=== PATIENT | female | born 2005 | race Caucasian/White ===

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

== ENCOUNTER 2025-02-10 08:22 | Inpatient (IN) | payer MEDICAID ==
[~2025-02-10] VITALS: Ht 167.6 cm; Wt 86.6 kg
--- NOTE | 2025-02-10 08:35 | ED.PDOC ---
GI ASSESSMENT HPI Comments 19 year old female presents to the ED with a chief complaint of abdominal pain onset last night. Patient states she began experiencing epigastric pain last night described as a sharp pain, as well as nausea, vomiting, diarrhea. Patient noticed pain worsen this morning, decided to come to ED. Denies any PMHx as well as chest pain, shortness of breath, headache, cough, congestion, fever, chills, dysuria, hematuria. No other symptoms or modifying factors present at this time. Time Seen by MD: 08:27 Primary Care Provider: DONN Gaston Notes: Medications, Allergies Allergies: Coded Allergies: NO KNOWN ALLERGIES (Unverified , 04/29/11) Home Meds Active Scripts Pantoprazole Sodium Sesquihydr (Protonix) 40 Mg Tab, 40 MG PO DAILY for 5 Days, #5 TAB Prov:ESTEFANI BELTRAN MD 02/10/25 Information Source: Patient Mode of Arrival: Ambulatory Timing: Days Duration: Since onset Prehospital treatment: None Quality: Sharp Severity: Moderate Recent: None Recent Hx of: None Pain Location: Epigastric Modifying Factors: Nothing Associated sign and symptoms: Nausea, Vomiting, Diarrhea, Abdominal Pain Past Medical History PAST MEDICAL HISTORY: Denies Surgical History: Denies all surgeries Family History Family History: Reviewed,noncontributory to illness, No family hx of HTN Social History Smoker: Other Alcohol: Occasionally Drugs: Marijuana Lives In: Home Constitutional: denies: chills, diaphoresis, fatigue, fever, malaise, sweats, weakness, others EENTM: denies: blurred vision, double vision, ear bleeding, ear discharge, ear drainage, ear pain, ear ringing, eye pain, eye redness, hearing loss, mouth pain, mouth swelling, nasal discharge, nose bleeding, nose congestion, nose pain, photophobia, tearing, throat pain, throat swelling, voice changes, others Respiratory: denies: cough, hemoptysis, orthopnea, SOB at rest, shortness of breath, SOB with excertion, stridor, wheezing, others Cardiovascular: denies: chest pain, dizzy spells, diaphoresis, Dyspnea on exertion, edema, irregular heart beat, left arm pain, lightheadedness, palpitations, PND, syncope, others Gastrointestinal: reports: abdominal pain, diarrhea, nausea, vomiting; denies: abdomen distended, blood streaked bowels, constipated, dysphagia, difficulty swallowing, hematemesis, melena, poor appetite, poor fluid intake, rectal bleeding, rectal pain, others Genitourinary: denies: abnormal vagina bleeding, burning, dyspareunia, dysuria, flank pain, frequency, hematuria, incontinence, pain, , vagina discharge, urgency, others Neurological: denies: dizziness, fainting, headache, left sided numbness, left sided weakness, numbness, paresthesia, pre-existing deficit, right sided numbness, right sided weakness, seizure, speech problems, tingling, tremors, weakness, others Musculoskeletal: denies: back pain, gout, joint pain, joint swelling, muscle p ain, muscle stiffness, neck pain, others Integumetry: denies: bruises, change in color, change in hair/nails, dryness, laceration, lesions, lumps, rash, wounds, others Allergic/Immunocompromised: denies: Difficulty Healing, Frequent Infections, Hives, Itching, others Hematologic/Lymphatic: denies: anemia, blood clots, easy bleeding, easy bruising, swollen glands, others Endocrine: denies: excessive hunger, excessive sweating, excessive thirst, excessive urination, flushing, intolerance to cold, intolerance to heat, unexplained weight gain, unexplained weight loss, others Psychiatric: denies: anxiety, bipolar disorder, depression, hopeless, panic disorder, schizophrenia, sleepless, suicidal, others All Other Systems: Reviewed and Negative Physical Exam General Appearance: Moderate Distress, Normal HEENT: Normal ENT Inspection, Pharynx Normal, TMs Normal Neck: Full Range of Motion, Non-Tender, Normal, Normal Inspection Respiratory: Chest Non-Tender, Lungs Clear, No Accessory Muscle Use, No Respiratory Distress, Normal Breath Sounds Cardiovascular: No Edema, No JVD, No Murmur, No Gallop, Normal Peripheral Pulses, Regular Rate/Rhythm Breast Exam: Deferred Gastrointestinal: No Organomegaly, Non Tender, No Pulsatile Mass, Normal Bowel Sounds, Soft Genitalia: Deferred Pelvic: Deferred Rectal: Deferred Extremities: No calf tenderness, Normal capillary refill, Normal inspection, Normal range of motion, Non-tender, No pedal edema Musculoskeletal : Apperance: Normal Neurologic: Alert, photographic spotter II-XII nml as Tested, No Motor Deficits, Normal Affect, Normal Mood, No Sensory Deficits Cerebellar Function: Normal Reflexes: Normal Skin: Dry, Normal Color, Warm Peripheral Pulses: 3+ Radial (R), 3+ Radial (L) Lymphatic: No Adenopathy Was a procedure done? Was a procedure done?: No GI differential Dx Differential Diagnosis: Constipation, Diverticular disease, Esophagitis, Gastritis/PUD, Gastroenteritis X-Ray, Labs, Meds, VS Vital Signs Date Time Temp Pulse Resp B/P (MAP) Pulse Ox O2 Delivery O2 Flow Rate FiO2 02/10/25 10:51 69 13 119/66 (83) 100 02/10/25 10:35 Room Air* 0 21 02/10/25 10:27 98.2 79 18 118/71 (87) 98 98.2 02/10/25 10:27 79 18 98 Room Air 02/10/25 08:42 97.9 101 18 128/82 (97) 98 97.9 Lab Test 02/10/25 11:29 02/10/25 09:00 02/10/25 08:49 Range/Units Lactic Acid Level 2.1 *H 0.4-2.0 mmol/L Urine Color Light-orange Yellow Urine Clarity Turbid H Clear Urine pH 8.0 5.0-9.0 Urine Specific [place] 1.029 1.001-1.035 Urine Protein 1+ H Negative Urine Ketones Negative Negative Urine Blood 2+ H Negative /uL Urine Nitrite Negative Negative Urine Bilirubin Negative Negative Urine Urobilinogen 2 H Negative mg/dL Urine Leukocyte Esterase 1+ Negative /uL Urine RBC 73 0 - 4 /hpf Urine Microscopic WBC 6 H 0-5 /HPF Urine Squamous Epithelial Cells Mod <5 /hpf Urine Bacteria Few H None Seen /hpf Urine Mucus Few None Seen Urine Yeast (Budding) Occasional None Seen /hpf Urine Glucose Normal Normal mg/dL Urine Test Negative Negative White Blood Count 16.4 H 4.4-10.8 10^3/uL Red Blood Count 4.80 4.0-5.20 10^6/uL Hemoglobin 15.0 12.2-16.2 g/dL Hematocrit 46.0 36.0-46.0 % Mean Corpuscular Volume 95.8 80.0-100.0 fL Mean Corpuscular Hemoglobin 31.1 28.0-32.0 pg Mean Corpuscular Hemoglobin Concent 32.5 32.0-36.0 g/dL Red Cell Distribution Width 13.6 11.8-14.3 % Platelet Count 254 140-450 10^3/uL Mean Platelet Volume 7.5 6.9-10.8 fL Neutrophils (%) (Auto) 90.1 H 37.0-80.0 % Lymphocytes (%) (Auto) 5.6 L 10.0-50.0 % Monocytes (%) (Auto) 4.1 0.0-12.0 % Eosinophils (%) (Auto) 0.0 0.0-7.0 % Basophils (%) (Auto) 0.2 0.0-2.0 % Neutrophils # (Auto) 14.8 H 1.6-8.6 10 ^3/uL Lymphocytes # (Auto) 0.9 0.4-5.4 10 ^3/uL Monocytes # (Auto) 0.7 0-1.3 10 ^3/uL Eosinophils # (Auto) 0 0-0.8 10 ^3/uL Basophils # (Auto) 0 0-0.2 10 ^3/uL Nucleated Red Blood Cells 0.2 % Prothrombin Time 10.3 9.3-11.8 sec Prothrombin Time INR 0.97 0.9-1.15 Activated Partial Thromboplast Time 25.5 24.5-34.5 SEC Sodium Level 140 136-145 mmol/L Potassium Level 4.2 3.5-5.1 mmol/L Chloride Level 104 98-107 mmol/L Carbon Dioxide Level 27 20-31 mmol/L Anion Gap 9 5-15 Blood Urea Nitrogen 9 9-23 mg/dL Creatinine 0.95 0.550-1.02 mg/dL Glomerular Filtration Rate Calc 87 >90 mL/min BUN/Creatinine Ratio 9.5 L 10.0-20.0 Serum Glucose 123 H 74-106 mg/dL Calcium Level 10.4 8.7-10.4 mg/dL Total Bilirubin 1.1 H 0.2-1.0 mg/dL Aspartate Amino Transferase (AST) 18 13-40 U/L Alanine Aminotransferase (ALT) 17 7-40 U/L Alkaline Phosphatase 71 46-116 U/L Total Protein 7.8 5.7-8.2 g/dL Albumin 5.1 H 3.2-4.8 g/dL Current Medications Medications (Trade) Dose Ordered Sig/Alfredo Route Start Time Stop Time Status Last Admin Ceftriaxone Sodium 50 ml @ 100 mls/hr ONCE ONCE IV 02/10/25 10:00 02/10/25 10:29 DC 02/10/25 10:26 Sodium Chloride 1,000 ml @ 1,000 mls/hr Q1H ONCE IV 02/10/25 10:00 02/10/25 10:59 DC 02/10/25 10:26 Patient alert. Complaining of abdominal discomfort. Abdomen is soft nontender. Vitals stable. No sign of distress. Ambulating without difficulty. Possible gastroenteritis. Reviewed her history. Was given prescription of Protonix. She is anxious. Continue monitoring. She continues to have abdominal discomfort. Urinalysis shows urinary tract infection. WBC elevated. Possible kidney stone. Establish intravenous access. Was given fluids. Was given Rocephin Explained to the patient. Spoke with surgery. He will be taking the patient. Time of 1ST Reevaluation: 08:57 Reevaluation 1ST: Unchanged Patient Education/Counseling: Diagnosis, Treatment, Prognosis Family Education/Counseling: No Family Present Additional Information The following tests were ordered, and results were reviewed by me: CBC, UA, PREGUA I discussed treatment and results with medical personnel and: Patient, mother Comprehensive systems review obtained and negative except for what is stated in the HPI. Departure 1 Departure Time of Disposition: 09:27 Impression: Primary Impression: Acute appendicitis Qualified Codes: K35.80 - Unspecified acute appendicitis Additional Impressions: Sepsis, unspecified organism Qualified Codes: A41.9 - Sepsis, unspecified organism Urinary tract infection Qualified Codes: N30.01 - Acute cystitis with hematuria Gastritis Qualified Codes: K29.00 - Acute gastritis without bleeding Disposition: 09 ADMITTED INPATIENT Admit to: Med Surg Condition: Guarded e-Prescriptions Pantoprazole Sodium Sesquihydr (Protonix) 40 Mg Tab 40 MG PO DAILY for 5 Days, #5 TAB Prov: ESTEFANI BELTRAN MD 02/10/25 Critical Care Note Critical Care Time?: Yes (90 min-critical care time only) Critical care comment: Started antibiotics Stability Stability form required: No Heart Score Heart Score: Heart Score Response (Comments) Value History N/A 0 EKG N/A 0 Age N/A 0 Risk Factors N/A 0 Troponin N/A 0 Total 0 I personally scribed for ESTEFANI BELTRAN MD ([email or web address]) on 02/10/25 at 08:35. Electronically submitted by Jemma Rowell ([email or web address]). I personally scribed for ESTEFANI BELTRAN MD ([email or web address]) on 02/10/25 at 08:41. Electronically submitted by Jemma Rowell ([email or web address]). ESTEFANI BELTRAN MD Feb 10, 2025 08:35
[2025-02-10 09:13] LABS: Basophils # (auto) 0 10 ^3/uL (0-0.2); Basophils % (auto) 0.2 % (0.0-2.0); Eosinophils # (auto) 0 10 ^3/uL (0-0.8); Lymphocytes # (auto) 0.9 10 ^3/uL (0.4-5.4); Lymphocytes % (auto) 5.6 % (10.0-50.0); Mean Corpuscular Hemoglobin 31.1 pg (28.0-32.0); Mean Corpuscular Hgb Conc. 32.5 g/dL (32.0-36.0); Mean Corpuscular Volume 95.8 fL (80.0-100.0); Monocytes # (auto) 0.7 10 ^3/uL (0-1.3); Monocytes % (auto) 4.1 % (0.0-12.0); Neutrophils # (auto) 14.8 10 ^3/uL (1.6-8.6); Neutrophils % (auto) 90.1 % (37.0-80.0); Nucleated Red Blood Cells % 0.2 %; Platelet Count (auto) 254 10^3/uL (140-450); Red Cell Distribution Width 13.6 % (11.8-14.3); White Blood Cell 16.4 10^3/uL (4.4-10.8)
[2025-02-10] MEDS ORDERED: PANT40TA2 PO (09:28)
[2025-02-10 09:31] LABS: Urine Bacteria FEW /hpf (None Seen); Urine Blood 2+ /uL (Negative); Urine Budding Yeast OCCASIONAL /hpf (None Seen); Urine Clarity Turbid (Clear); Urine Color Light-Orange (Yellow); Urine Mucus FEW (None Seen); Urine Protein, UAD 1+ (Negative); Urine Specific Gravity 1.029 (1.001-1.035); Urine Squamous Epithelial Cell MOD /hpf (<5); Urine Urobilinogen 2 mg/dL (Negative); Urine WBC 6 /HPF (0-5)
[2025-02-10] MEDS: cefTRIAXone 1GM/50ML D5W 50 ML IV ONE (10:26)
[2025-02-10] MEDS: SODIUM CHLORIDE 0.9% 1,000 ML IV ONE ×2 (10:26→12:15)
--- NOTE | 2025-02-10 10:39 | DVH ---
CT ABDOMEN AND PELVIS WITHOUT CONTRAST CLINICAL HISTORY: stone TECHNIQUE: Multiple contiguous axial images of the abdomen and pelvis without intravenous contrast. T he images were reformatted degenerate coronal and sagittal reconstructions. All CT scans at this medical facility are performed using dose modulation techniques as appropriate t o a performed exam including the following:Automated exposure control was utilized; adjustment of the MA and/or KV according to patient size; and use of iterative reconstruction technique. Radiation Dose Information: CT Dose: CTDI volume is 15.15 mGy. Dose-length product is 859.44 mGy*cm Comparison: 09/22/2021 FINDINGS: Evaluation of the abdomen and pelvis is limited without intravenous contrast. The liver, gallbladder, pancreas, kidneys, adrenal glands, and spleen appear within normal limits. There is no gross evidence of abdominal lymphadenopathy. There is no free fluid or free air. The stomach grossly appears unremarkable. The small and large bowel loops demonstrate normal caliber and distribution. There is a thickened appendix in the right lower quadrant abdomen with surrounding fat stranding consistent with acute appendicitis. There is no periappendiceal fluid collection or f ree air. The abdominal aorta and IVC appear within normal limits. The bladder appears unremarkable for the degree of distention. There is an IUD seen within the uterus .. There is no gross evidence of a pelvic mass. There is no free fluid collection. Lung bases are clear. There is no acute osseous abnormality. IMPRESSION: 1. Findings consistent with acute appendicitis. There is no periappendiceal fluid collection or free air. Critical findings discussed with Dr. Lau by Dr. Vincent Lynn via phone on 02/10/2025 10:36 AM. HS:Y
[2025-02-10 11:39] LABS: Alanine Aminotransferase 17 U/L (7-40); Albumin 5.1 g/dL (3.2-4.8); Alkaline Phosphatase 71 U/L (46-116); Anion Gap 9 (5-15); Aspartate Aminotransferase 18 U/L (13-40); BUN/Creatinine Ratio 9.5 (10.0-20.0); Bilirubin, Total 1.1 mg/dL (0.2-1.0); Blood Urea Nitrogen 9 mg/dL (9-23); Calcium 10.4 mg/dL (8.7-10.4); Carbon Dioxide 27 mmol/L (20-31); Chloride 104 mmol/L (98-107); Glucose 123 mg/dL (74-106); Potassium 4.2 mmol/L (3.5-5.1); Sodium 140 mmol/L (136-145); Total Protein 7.8 g/dL (5.7-8.2)
[2025-02-10] MEDS ORDERED: ACETAMINOPHEN 325 MG TAB PO PRN (11:45)
[2025-02-10] MEDS ORDERED: DOCUSATE SOD 100 MG CAP PO PRN (11:45)
[2025-02-10] MEDS ORDERED: HYDROcodone-ACET 5/325MG TAB PO PRN (11:45)
[2025-02-10] MEDS ORDERED: MORPHINE SULFATE INJ 2 MG/ml SYRG IV PRN (11:45)
[2025-02-10] MEDS ORDERED: ONDANSETRON HCL 4 MG/2 ML VIAL IV PRN ×2 (11:45→15:00)
[2025-02-10] MEDS: SODIUM CHLORIDE 0.9% 1,000 ML IV SCH (11:45)
[2025-02-10 11:55] LABS: INR 0.97 (0.9-1.15); Partial Thromboplastin Time 25.5 SEC (24.5-34.5); Prothrombin Time 10.3 sec (9.3-11.8)
--- NOTE | 2025-02-10 11:55 | DVHHP2 ---
History of Present Illness Reason for Visit: Abdominal pain History of Present Illness Gwendolyn Moreno is a 19-year-old female with no significant past medical history who came in for abdominal pain. Patient states the pain began last night with associated nausea and vomiting. She states it continued to worsen prompting her to come to the ER. Past Surgical History: None Smoke: <1 pack per day (Vape) ALCOHOL: occassional Drugs: None Lives: with Family Domestic Violence: Neg Review of Systems Constitutional: No: Fever, Chills, Sweats, Weakness, Malaise, Other Eyes: No: Pain, Vision change, Conjunctivae inflammation, Eyelid inflammation, Other, Redness ENT: No: Ear pain, Ear discharge, Nose pain, Nose discharge, Nose congestion, Mouth pain, Mouth swelling, Throat pain, Throat swelling, Other Respiratory: No: Cough, Dry, Shortness of breath, SOB with excertion, Wheezing, Hemoptysis, Pleuritic Pain, Sputum, Wheezing, Other Cardiovascular: No: Chest Pain, Palpitations, Orthopnea, Paroxysmal Noc. Dyspnea, Edema, Lt Headedness, Other Gastrointestinal: Nausea, Vomiting, Abdominal Pain; No: Diarrhea, Constipation, Melena, Hematochezia, Other Genitourinary: No Dysuria, No Frequency, No Incontinence, No Hematuria, No Retention, No Other Musculoskeletal: No: other, neck pain, shoulder pain, arm pain, back pain, hand pain, leg pain, foot pain Skin: No: Rash, Lesions, Jaundice, Bruising, Other Neurological: No: Weakness, Numbness, Incoordination, Change in speech, Confusion, Seizures, Other Allergies: Coded Allergies: NO KNOWN ALLERGIES (Unverified , 04/29/11) Medications Current Medications Medications Dose Ordered Sig/Alfredo Route Start Time Stop Time Status Last Admin Dose Admin Sodium Chloride 1,000 ml @ 75 mls/hr [id number] IV 02/10/25 11:45 UNV Acetaminophen/ Hydrocodone Bitart 1 tab Q4HP PRN PO 02/10/25 11:45 UNV Ondansetron HCl 4 mg Q4HP PRN IV 02/10/25 11:45 UNV Docusate Sodium 100 mg BIDPRN PRN PO 02/10/25 11:45 UNV Acetaminophen 650 mg Q6HP PRN PO 02/10/25 11:45 UNV Morphine Sulfate 2 mg Q4HPRN PRN IV 02/10/25 11:45 UNV Exam Vital Signs Vital Signs Date Time Temp Pulse Resp B/P (MAP) Pulse Ox O2 Delivery O2 Flow Rate FiO2 02/10/25 10:51 69 13 119/66 (83) 100 02/10/25 10:35 Room Air* 0 21 02/10/25 10:27 98.2 98.2 General Appearance: Alert, Oriented X3, Cooperative, moderate distress HEENT: Atraumatic, PERRLA Respiratory: Clear to auscultation, Normal air movement Cardiovascular: Regular rate, Normal S1, Normal S2 Abdominal: Normal bowel sounds, Soft, Other (RLQ pain, worse with palpitation) Skin: No rashes, No breakdown, No significant lesion Neuro: Normal gait, Normal speech, Strength at 5/5 X4 ext, Normal tone Psych/Mental Status: Mental status NL, Mood NL Labs/Xrays Labs Test 02/10/25 11:29 02/10/25 09:00 02/10/25 08:49 Range/Units Urine Color Light-orange Yellow Urine Clarity Turbid H Clear Urine pH 8.0 5.0-9.0 Urine Specific [place] 1.029 1.001-1.035 Urine Protein 1+ H Negative Urine Ketones Negative Negative Urine Blood 2+ H Negative /uL Urine Nitrite Negative Negative Urine Bilirubin Negative Negative Urine Urobilinogen 2 H Negative mg/dL Urine Leukocyte Esterase 1+ Negative /uL Urine RBC 73 0 - 4 /hpf Urine Microscopic WBC 6 H 0-5 /HPF Urine Squamous Epithelial Cells Mod <5 /hpf Urine Bacteria Few H None Seen /hpf Urine Mucus Few None Seen Urine Yeast (Budding) Occasional None Seen /hpf Urine Glucose Normal Normal mg/dL Urine Test Negative Negative White Blood Count 16.4 H 4.4-10.8 10^3/uL Red Blood Count 4.80 4.0-5.20 10^6/uL Hemoglobin 15.0 12.2-16.2 g/dL Hematocrit 46.0 36.0-46.0 % Mean Corpuscular Volume 95.8 80.0-100.0 fL Mean Corpuscular Hemoglobin 31.1 28.0-32.0 pg Mean Corpuscular Hemoglobin Concent 32.5 32.0-36.0 g/dL Red Cell Distribution Width 13.6 11.8-14.3 % Platelet Count 254 140-450 10^3/uL Mean Platelet Volume 7.5 6.9-10.8 fL Neutrophils (%) (Auto) 90.1 H 37.0-80.0 % Lymphocytes (%) (Auto) 5.6 L 10.0-50.0 % Monocytes (%) (Auto) 4.1 0.0-12.0 % Eosinophils (%) (Auto) 0.0 0.0-7.0 % Basophils (%) (Auto) 0.2 0.0-2.0 % Neutrophils # (Auto) 14.8 H 1.6-8.6 10 ^3/uL Lymphocytes # (Auto) 0.9 0.4-5.4 10 ^3/uL Monocytes # (Auto) 0.7 0-1.3 10 ^3/uL Eosinophils # (Auto) 0 0-0.8 10 ^3/uL Basophils # (Auto) 0 0-0.2 10 ^3/uL Nucleated Red Blood Cells 0.2 % Sodium Level 140 136-145 mmol/L Potassium Level 4.2 3.5-5.1 mmol/L Chloride Level 104 98-107 mmol/L Carbon Dioxide Level 27 20-31 mmol/L Anion Gap 9 5-15 Blood Urea Nitrogen 9 9-23 mg/dL Creatinine 0.95 0.550-1.02 mg/dL Glomerular Filtration Rate Calc 87 >90 mL/min BUN/Creatinine Ratio 9.5 L 10.0-20.0 Serum Glucose 123 H 74-106 mg/dL Calcium Level 10.4 8.7-10.4 mg/dL Total Bilirubin 1.1 H 0.2-1.0 mg/dL Aspartate Amino Transferase (AST) 18 13-40 U/L Alanine Aminotransferase (ALT) 17 7-40 U/L Alkaline Phosphatase 71 46-116 U/L Total Protein 7.8 5.7-8.2 g/dL Albumin 5.1 H 3.2-4.8 g/dL CT ABDOMEN AND PELVIS WITHOUT CONTRAST FINDINGS: Evaluation of the abdomen and pelvis is limited without intravenous contrast. The liver, gallbladder, pancreas, kidneys, adrenal glands, and spleen appear within normal limits. There is no gross evidence of abdominal lymphadenopathy. There is no free fluid or free air. The stomach grossly appears unremarkable. The small and large bowel loops demonstrate normal caliber and distribution. There is a thickened appendix in the right lower quadrant abdomen with surrounding fat stranding consistent with acute appendicitis. There is no periappendiceal fluid collection or free air. The abdominal aorta and IVC appear within normal limits. The bladder appears unremarkable for the degree of distention. There is an IUD seen within the uterus.. There is no gross evidence of a pelvic mass. There is no free fluid collection. Lung bases are clear. There is no acute osseous abnormality. IMPRESSION: 1. Findings consistent with acute appendicitis. There is no periappendiceal fluid collection or free air. Critical findings discussed with Dr. Lau by Dr. Vincent Lynn via phone on 02/10/2025 10:36 AM. Assessment/Plan Assessment/Plan Assessment: Acute appendicitis, Leukocytosis, Plan: Admit to Med-Surg, Surgical consult, NPO, IV antibiotics, Pain management, IV hydration, PT/PTT, Type and Screen, Plan discussed with: Patient My Orders Orders - WILIAN MAR Procedure Category Date Status Time PTPTT LAB 02/10/25 In Process 11:04 Lactic Acid W/ Reflex LAB 02/10/25 In Process Order 11:04 Type And Screen BBK 02/10/25 Logged 11:35 Admit ADMIT 02/10/25 Transmitted 11:44 Code Status CODE 02/10/25 Transmitted 11:44 Sodium Chloride 0.9% PHA 02/10/25 Logged 11:45 Hydrocodone-Acet PHA 02/10/25 Logged 5/325mg Tab ([place] 11:45 Ondansetron Hcl PHA 02/10/25 Logged (Zofran) 11:45 Docusate Sodium PHA 02/10/25 Logged Capsule (Colace 11:45 Complete Blood Count LAB 02/11/25 Verified 04:00 Comprehensive LAB 02/11/25 Verified Metabolic Panel 04:00 Npo (Nothing By DIET 02/10/25 Transmitted Mouth) Diet Lunch Condition: Critical PINA 02/10/25 In Process 11:44 Acetaminophen Tablet PHA 02/10/25 Logged (Tylenol Tablet) 11:45 Morphine Sulfate PHA 02/10/25 Logged Injection 11:45 Date of Service: Feb 10, 2025 Billing Provider: WILIAN MAR Common Visit Codes: [id number] INP/OBS CARE (HIGH) WILIAN MAR Feb 10, 2025 11:55
[2025-02-10 12:03] LABS: Lactic Acid w/Reflex 2.1 mmol/L (0.4-2.0)
[2025-02-10 12:29] VITALS: BP 133/68; PULSE 63; RESP 18; TEMP 98.5; O2SAT 100
[2025-02-10] MEDS: ceFAZolin 2 GM/D5W100ml 100 ML IV ONE (13:08)
[2025-02-10] MEDS: BUPIVACAINE 0.25% INJ 50ML VIAL ONE (13:11)
--- NOTE | 2025-02-10 13:21 | DVHINCON2 ---
Date of service: Feb 10, 2025 Family History: Hypertension G8 FATHER Allergies: Coded Allergies: NO KNOWN ALLERGIES (Unverified , 04/29/11) Home Meds Active Scripts Pantoprazole Sodium Sesquihydr (Protonix) 40 Mg Tab, 40 MG PO DAILY for 5 Days, #5 TAB Prov:ESTEFANI BELTRAN MD 02/10/25 Current Medications Current Medications Medications (Trade) Dose Ordered Sig/Alfredo Route PRN Reason Start Time Stop Time Status Last Admin Sodium Chloride 1,000 ml @ 75 mls/hr [id number] IV 02/10/25 11:45 Acetaminophen/ Hydrocodone Bitart ([place] 5/325MG Tab) 1 tab Q4HP PRN PO MODERATE PAIN (4-6 PAIN SCALE) 02/10/25 11:45 Ondansetron HCl (Zofran) 4 mg Q4HP PRN IV NAUSEA / VOMITING 02/10/25 11:45 Docusate Sodium (Colace Capsule) 100 mg BIDPRN PRN PO FOR CONSTIPATION 02/10/25 11:45 Acetaminophen (Tylenol Tablet) 650 mg Q6HP PRN PO PAIN SCALE 1-3 OR TEMP>100.4 02/10/25 11:45 Morphine Sulfate 2 mg Q4HPRN PRN IV SEVERE PAIN (7-10 PAIN SCALE) 02/10/25 11:45 Ceftriaxone Sodium 50 ml @ 100 mls/hr DAILY@09 IV 02/11/25 09:00 Vital Signs Vital Signs Date Time Temp Pulse Resp B/P (MAP) Pulse Ox O2 Delivery O2 Flow Rate FiO2 02/10/25 12:29 98.5 63 18 133/68 (89) 100 98.5 02/10/25 10:35 Room Air* 0 21 Labs/Diagnostic Data Labs Test 02/10/25 11:29 02/10/25 09:00 02/10/25 08:49 Range/Units Lactic Acid Level 2.1 *H 0.4-2.0 mmol/L Urine Color Light-orange Yellow Urine Clarity Turbid H Clear Urine pH 8.0 5.0-9.0 Urine Specific [place] 1.029 1.001-1.035 Urine Protein 1+ H Negative Urine Ketones Negative Negative Urine Blood 2+ H Negative /uL Urine Nitrite Negative Negative Urine Bilirubin Negative Negative Urine Urobilinogen 2 H Negative mg/dL Urine Leukocyte Esterase 1+ Negative /uL Urine RBC 73 0 - 4 /hpf Urine Microscopic WBC 6 H 0-5 /HPF Urine Squamous Epithelial Cells Mod <5 /hpf Urine Bacteria Few H None Seen /hpf Urine Mucus Few None Seen Urine Yeast (Budding) Occasional None Seen /hpf Urine Glucose Normal Normal mg/dL Urine Test Negative Negative White Blood Count 16.4 H 4.4-10.8 10^3/uL Red Blood Count 4.80 4.0-5.20 10^6/uL Hemoglobin 15.0 12.2-16.2 g/dL Hematocrit 46.0 36.0-46.0 % Mean Corpuscular Volume 95.8 80.0-100.0 fL Mean Corpuscular Hemoglobin 31.1 28.0-32.0 pg Mean Corpuscular Hemoglobin Concent 32.5 32.0-36.0 g/dL Red Cell Distribution Width 13.6 11.8-14.3 % Platelet Count 254 140-450 10^3/uL Mean Platelet Volume 7.5 6.9-10.8 fL Neutrophils (%) (Auto) 90.1 H 37.0-80.0 % Lymphocytes (%) (Auto) 5.6 L 10.0-50.0 % Monocytes (%) (Auto) 4.1 0.0-12.0 % Eosinophils (%) (Auto) 0.0 0.0-7.0 % Basophils (%) (Auto) 0.2 0.0-2.0 % Neutrophils # (Auto) 14.8 H 1.6-8.6 10 ^3/uL Lymphocytes # (Auto) 0.9 0.4-5.4 10 ^3/uL Monocytes # (Auto) 0.7 0-1.3 10 ^3/uL Eosinophils # (Auto) 0 0-0.8 10 ^3/uL Basophils # (Auto) 0 0-0.2 10 ^3/uL Nucleated Red Blood Cells 0.2 % Prothrombin Time 10.3 9.3-11.8 sec Prothrombin Time INR 0.97 0.9-1.15 Activated Partial Thromboplast Time 25.5 24.5-34.5 SEC Sodium Level 140 136-145 mmol/L Potassium Level 4.2 3.5-5.1 mmol/L Chloride Level 104 98-107 mmol/L Carbon Dioxide Level 27 20-31 mmol/L Anion Gap 9 5-15 Blood Urea Nitrogen 9 9-23 mg/dL Creatinine 0.95 0.550-1.02 mg/dL Glomerular Filtration Rate Calc 87 >90 mL/min BUN/Creatinine Ratio 9.5 L 10.0-20.0 Serum Glucose 123 H 74-106 mg/dL Calcium Level 10.4 8.7-10.4 mg/dL Total Bilirubin 1.1 H 0.2-1.0 mg/dL Aspartate Amino Transferase (AST) 18 13-40 U/L Alanine Aminotransferase (ALT) 17 7-40 U/L Alkaline Phosphatase 71 46-116 U/L Total Protein 7.8 5.7-8.2 g/dL Albumin 5.1 H 3.2-4.8 g/dL Assessment [id number] AC APPENDICITIS LAP/OPEN APPENDECTOMY Plan discussed with: Patient JESUS DOBBINS MD Feb 10, 2025 13:21
[2025-02-10] MEDS ORDERED: ONDANSETRON HCL 4 MG/2 ML VIAL ONE (13:30)
[2025-02-10] MEDS: CELECOXIB 100 MG CAP PO ONE (13:30)
[2025-02-10] MEDS: ACETAMINOPHEN 500 MG TAB or CAP PO ONE ×2 (13:30→13:31)
[2025-02-10] MEDS: GABAPENTIN 300 MG CAP PO ONE (13:30)
[2025-02-10] MEDS ORDERED: LIDOCAINE 2% (LOCAL ANESTH.) PF 5ml SDV ONE (13:30)
[2025-02-10] MEDS ORDERED: PROPOFOL 10 MG/ML 20 ML IV ONE (13:31)
[2025-02-10] MEDS ORDERED: LIDOCAINE HCL 2% TOP JELLY 5ML TOP ONE (13:31)
[2025-02-10] MEDS ORDERED: GLYCOPYRROLATE 0.2 MG/ML 1ML VIAL ONE (13:31)
[2025-02-10] MEDS ORDERED: KETOROLAC TROMETH 30 MG/ML 1ML VIAL ONE (13:31)
[2025-02-10] MEDS ORDERED: ROCURONIUM 10MG/ML 10ML VIAL IV ONE (13:31)
[2025-02-10] MEDS: GABAPENTIN 300 MG CAP ONE (13:31)
[2025-02-10] MEDS ORDERED: DexAMETHasone SOD PHOS 10MG/1ML VIAL INJ ONE (13:31)
[2025-02-10] MEDS ORDERED: SUGAMMADEX 200mg/2ml Vial (100MG/ML) IV ONE (13:31)
[2025-02-10] MEDS: CELECOXIB 100 MG CAP ONE (13:31)
[2025-02-10] MEDS ORDERED: fentaNYL CITRATE 100 MCG/2 ML VL ONE (13:33)
[2025-02-10] MEDS ORDERED: KETAMINE 50mg/ML 1ml syringe ONE (13:33)
[2025-02-10] MEDS: LIDOCAINE 2%HCL (LOCAL ANESTH.) INJ 10ml MDV ONE (13:38)
--- NOTE | 2025-02-10 13:52 | DVHINCON2 ---
DATE OF CONSULTATION: 02/10/2025 HISTORY OF PRESENT ILLNESS: A 19 years old, coming in with right lower quadrant pain, started with the upper abdomen and then going to the right lower quadrant for 1 day. No nausea, vomiting. No constipation, diarrhea. No hematemesis, melena. No bleeding per rectum. PAST MEDICAL HISTORY: No diabetes, hypertension. PAST SURGICAL HISTORY: No significant surgical history. PHYSICAL EXAMINATION: VITAL SIGNS: Afebrile, stable signs. HEENT: With no evidence of pallor, cyanosis, or jaundice. NECK: Supple, nontender with no thyromegaly, lymphadenopathy. CHEST AND LUNGS: Clear. HEART: Within normal limits. ABDOMEN: Soft, tender in the right lower quadrant, evidence of rebound. EXTREMITIES: Unremarkable. NEUROLOGIC: Intact. CLINICAL IMPRESSION: Acute appendicitis. PLAN: Laparoscopic, possible open appendectomy. Benefits, risks discussed and a consent obtained. MD RAYMUNDO Torres/CHANTEL TID: [id number] RECEIPT: [id number] cc: ELIZABETH VICENTE
[2025-02-10] MEDS ORDERED: ePHEDrine SULFATE 50 MG/ML AMP ONE (14:13)
[2025-02-10 14:43] VITALS: PULSE 51; RESP 14; O2SAT 97
--- NOTE | 2025-02-10 14:58 | DVHOP2 ---
Operative Report [id number] AC APPENDICITIS INTRAABD ABSCESS DRAINAGE INTRAABD ABSCESS, LAP APPENDECTOMY EBL 5 CC NO DRAINS NO COMPLICATIONS JESUS DOBBINS MD Feb 10, 2025 14:58
[2025-02-10] MEDS ORDERED: ePHEDrine SULFATE 50 MG/ML AMP IV PRN (15:00)
[2025-02-10] MEDS ORDERED: oxyCODONE HCL 5MG TAB PO PRN (15:00)
[2025-02-10] MEDS ORDERED: fentaNYL CITRATE 100 MCG/2 ML VL IV PRN (15:00)
[2025-02-10] MEDS ORDERED: FLUMAZENIL 0.1 MG/ML INJ 10ML MDV IV PRN (15:00)
[2025-02-10] MEDS ORDERED: NALOXONE HCL 0.4 MG/ML VIAL IV PRN (15:00)
[2025-02-10] MEDS ORDERED: hydrALAZINE HCL 20 MG/ML VL IV PRN (15:00)
--- NOTE | 2025-02-10 15:16 | DVHOP ---
DATE OF SURGERY: 02/10/2025 PREOPERATIVE DIAGNOSIS: Acute appendicitis, was found to have intraabdominal abscess. POSTOPERATIVE DIAGNOSIS: Acute appendicitis, was found to have intraabdominal abscess. PROCEDURES: Drainage of intraabdominal abscess with laparoscopic appendectomy. SURGEON: Elio Long MD CASH REGISTER SERVICER: None. ANESTHESIA: General. BLOOD LOSS: Close to 5 mL. DRAINS: No drains were used. COMPLICATIONS: No complications were encountered. DESCRIPTION OF PROCEDURE: The patient was prepped and draped in the usual sterile fashion in the supine position and a supraumbilical incision was applied and was taken down to the fascia. The Veress needle was introduced and CO2 insufflation was started to pressure of 15 mmHg. The needle was withdrawn, replaced by the 12 mm trocar. Then, telescope was introduced and the contents of the appendix was found to be acutely inflamed distended with intraabdominal abscess and the pelvis as well. Two 5 mm ports were applied more inferiorly, one above the symphysis, the third midway between the upper two. The patient then placed in Trendelenburg and right upper lateral position. The camera was moved to the lower most 5 mm port. The upper two ports were used for the surgery. The abscess was drained out. The mesoappendix was clipped at the base, divided distal to that using Harmonic device. The base of the appendix was cleared for transection. Once identified, it was done using the Endo JUNIOR stapling device. The appendix released in this fashion was retrieved from the supraumbilical wound in the Endo Catch bag without any complication without any problem. The irrigation fluid was removed from the right lower quadrant as well as the pelvis and the patient was placed back supine. Endo Close suture used for the fascial closure of the supraumbilical wound. All the ports were withdrawn after all the CO2 had been let out and the patient was placed supine. The wounds were then brought together using 3-0 Monocryl suture in a subcuticular fashion. Surgical glue applied. The patient tolerated procedure well and was taken back to recovery room in a stable condition. MD RAYMUNDO Torres/YADIRA TID: [id number] RECEIPT: [id number] cc: ELIZABETH Cherry
[2025-02-10] MEDS: HYDROmorphone HCL 2 MG/ML VL/or syr IV PRN (15:17)
[2025-02-10 19:52] VITALS: BP 118/66; PULSE 58; RESP 17; TEMP 98.2; O2SAT 96
[2025-02-10 21:00] VITALS: BP 118/66; PULSE 58; RESP 17; TEMP 98.2; O2SAT 96
[2025-02-11 01:00] VITALS: BP 120/73; PULSE 59; RESP 18; TEMP 98.2; O2SAT 98
[2025-02-11 05:00] VITALS: BP 112/52; PULSE 68; RESP 17; TEMP 98.3; O2SAT 98
[2025-02-11 05:24] LABS: Basophils # (auto) 0 10 ^3/uL (0-0.2); Basophils % (auto) 0.3 % (0.0-2.0); Eosinophils # (auto) 0 10 ^3/uL (0-0.8); Hematocrit 37.1 % (36.0-46.0); Hemoglobin 12.6 g/dL (12.2-16.2); Lymphocytes # (auto) 0.9 10 ^3/uL (0.4-5.4); Lymphocytes % (auto) 10.7 % (10.0-50.0); Mean Corpuscular Hemoglobin 32.2 pg (28.0-32.0); Mean Corpuscular Volume 94.8 fL (80.0-100.0); Monocytes # (auto) 0.7 10 ^3/uL (0-1.3); Monocytes % (auto) 8.2 % (0.0-12.0); Neutrophils # (auto) 6.9 10 ^3/uL (1.6-8.6); Neutrophils % (auto) 80.8 % (37.0-80.0); Platelet Count (auto) 195 10^3/uL (140-450); Red Blood Cells 3.92 10^6/uL (4.0-5.20); Red Cell Distribution Width 13.7 % (11.8-14.3); White Blood Cell 8.6 10^3/uL (4.4-10.8)
[2025-02-11 05:40] LABS: Alanine Aminotransferase 12 U/L (7-40); Alkaline Phosphatase 54 U/L (46-116); Anion Gap 8 (5-15); BUN/Creatinine Ratio 10.3 (10.0-20.0); Calcium 9.5 mg/dL (8.7-10.4); Carbon Dioxide 24 mmol/L (20-31); Sodium 140 mmol/L (136-145); Total Protein 6.1 g/dL (5.7-8.2)
[2025-02-11 05:41] LABS: Bilirubin, Total 0.8 mg/dL (0.2-1.0)
[2025-02-11 05:44] LABS: Aspartate Aminotransferase 10 U/L (13-40); Blood Urea Nitrogen 8 mg/dL (9-23); Chloride 108 mmol/L (98-107); Glucose 118 mg/dL (74-106)
[2025-02-11] MEDS: cefTRIAXone 1GM/50ML D5W 50 ML IV SCH (08:49)
[2025-02-11 08:51] VITALS: BP 118/60; PULSE 52; RESP 15; TEMP 97.6; O2SAT 93
[2025-02-11 13:00] VITALS: BP 107/58; PULSE 74; RESP 16; TEMP 98; O2SAT 99
[2025-02-11] MEDS ORDERED: ACE3T PO (13:12)
[2025-02-11] MEDS ORDERED: AUG875T PO (13:12)
--- NOTE | 2025-02-11 13:15 | DVHDS2 ---
Discharge Summary Date of Admission Feb 10, 2025 at 11:44 Date of Discharge: Feb 11, 2025 Labs/Diagnostic Data: Laboratory Results Test 02/11/25 04:57 02/10/25 16:54 02/10/25 09:00 02/10/25 08:49 White Blood Count 8.6 10^3/uL (4.4-10.8) Red Blood Count 3.92 10^6/uL (4.0-5.20) Hemoglobin 12.6 g/dL (12.2-16.2) Hematocrit 37.1 % (36.0-46.0) Mean Corpuscular Volume 94.8 fL (80.0-100.0) Mean Corpuscular Hemoglobin 32.2 pg (28.0-32.0) Mean Corpuscular Hemoglobin Concent 34.0 g/dL (32.0-36.0) Red Cell Distribution Width 13.7 % (11.8-14.3) Platelet Count 195 10^3/uL (140-450) Mean Platelet Volume 8.3 fL (6.9-10.8) Neutrophils (%) (Auto) 80.8 % (37.0-80.0) Lymphocytes (%) (Auto) 10.7 % (10.0-50.0) Monocytes (%) (Auto) 8.2 % (0.0-12.0) Eosinophils (%) (Auto) 0.0 % (0.0-7.0) Basophils (%) (Auto) 0.3 % (0.0-2.0) Neutrophils # (Auto) 6.9 10 ^3/uL (1.6-8.6) Lymphocytes # (Auto) 0.9 10 ^3/uL (0.4-5.4) Monocytes # (Auto) 0.7 10 ^3/uL (0-1.3) Eosinophils # (Auto) 0 10 ^3/uL (0-0.8) Basophils # (Auto) 0 10 ^3/uL (0-0.2) Nucleated Red Blood Cells 0.0 % Sodium Level 140 mmol/L (136-145) Potassium Level 4.0 mmol/L (3.5-5.1) Chloride Level 108 mmol/L (98-107) Carbon Dioxide Level 24 mmol/L (20-31) Anion Gap 8 (5-15) Blood Urea Nitrogen 8 mg/dL (9-23) Creatinine 0.78 mg/dL (0.550-1.02) Glomerular Filtration Rate Calc 111 mL/min (>90) BUN/Creatinine Ratio 10.3 (10.0-20.0) Serum Glucose 118 mg/dL (74-106) Calcium Level 9.5 mg/dL (8.7-10.4) Total Bilirubin 0.8 mg/dL (0.2-1.0) Aspartate Amino Transferase (AST) 10 U/L (13-40) Alanine Aminotransferase (ALT) 12 U/L (7-40) Alkaline Phosphatase 54 U/L (46-116) Total Protein 6.1 g/dL (5.7-8.2) Albumin 4.0 g/dL (3.2-4.8) Lactic Acid Level 1.6 mmol/L (0.4-2.0) Urine Color Light-orange (Yellow) Urine Clarity Turbid (Clear) Urine pH 8.0 (5.0-9.0) Urine Specific Starlight 1.029 (1.001-1.035) Urine Protein 1+ (Negative) Urine Ketones Negative (Negative) Urine Blood 2+ /uL (Negative) Urine Nitrite Negative (Negative) Urine Bilirubin Negative (Negative) Urine Urobilinogen 2 mg/dL (Negative) Urine Leukocyte Esterase 1+ /uL (Negative) Urine RBC 73 /hpf (0 - 4) Urine Microscopic WBC 6 /HPF (0-5) Urine Squamous Epithelial Cells Mod /hpf (<5) Urine Bacteria Few /hpf (None Seen) Urine Mucus Few (None Seen) Urine Yeast (Budding) Occasional /hpf (None Urine Glucose Normal mg/dL (Normal) Urine Test Negative (Negative) Prothrombin Time 10.3 sec (9.3-11.8) Prothrombin Time INR 0.97 (0.9-1.15) Activated Partial Thromboplast Time 25.5 SEC (24.5-34.5) Other Laboratory Tests 02/11/25 04:57 Brief Hx & Hospital Course: Final diagnoses: Acute appendicitis with intra-abdominal abscess Status post laparoscopic appendectomy 19-year-old female who was admitted for abdominal pain was found to have acute appendicitis, underwent successful appendectomy with no complications She had drainage of the intra-abdominal abscess laparoscopically Overnight she is doing well She is tolerating clear liquid diet Diet will be advanced slowly as tolerated She can be discharged home She will be given Augmentin for 7 days and Tylenol No. 3 p.r.n. for the pain Follow up with Dr. Marnie Long in 1-2 weeks Condition at Discharge: Stable Final Diagnosis/Problems List Acute appendicitis Intra-abdominal abscess Status post appendectomy Discharge Disposition: Home SNF Discharge Will this Physician continue t: No Discharge Instruct/Medications Diet: Regular Activity: No Restrictions, As Tolerated Follow Up/Referral: Dr. Rocco Long 1-2 weeks Medications: Tylenol No. 3 p.r.n. Augmentin twice a day for 7 days Discharge Statement: "Patient was advised to return to the ER or call 911 if any headaches, dizziness, shortness of breath, chest pain, abdominal pain, bleeding, fevers, or worsening of medical condition. Patient was counseled about treatment plan, medications, possible side effects, patientverbalized understanding. All questions were answered to the best of my ability. This discharge took greater then 30 minutes in planning, reviewing documentation, counseling the patient, and discussing with other team members." ASSESSMENT ASSESSMENT Assessment Acute appendicitis Date of Service: Feb 11, 2025 Billing Provider: ALEX FITZPATRICK MD Common Visit Codes: 31814-OMZ/OBS DISCH DAY >30min ALEX FITZPATRICK MD Feb 11, 2025 13:15
--- NOTE | 2025-02-11 14:15 | DVHPN2 ---
Progress Note Date Seen: Feb 11, 2025 Medical Necessity Reason Pt with a Central, PICC or Fol: No Objective vital signs Vital Sign Date Time Temp Pulse Resp B/P (MAP) Pulse Ox O2 Delivery O2 Flow Rate FiO2 02/11/25 08:51 97.6 52 15 118/60 (79) 93 97.6 02/11/25 08:05 Room Air* 0 21 Total Intake and Output 02/10/25 02/10/25 02/11/25 15:00 23:00 07:00 Intake Total 1150 ml 1325 ml Balance 1150 ml 1325 ml medications Current Medications Medications Dose Ordered Sig/Alfredo Route Start Time Stop Time Status Last Admin Dose Admin Sodium Chloride 1,000 ml @ 75 mls/hr [id number] IV 02/10/25 11:45 02/10/25 23:06 75 MLS/HR Acetaminophen/ Hydrocodone Bitart 1 tab Q4HP PRN PO 02/10/25 11:45 Ondansetron HCl 4 mg Q4HP PRN IV 02/10/25 11:45 Docusate Sodium 100 mg BIDPRN PRN PO 02/10/25 11:45 Acetaminophen 650 mg Q6HP PRN PO 02/10/25 11:45 Morphine Sulfate 2 mg Q4HPRN PRN IV 02/10/25 11:45 Ceftriaxone Sodium 50 ml @ 100 mls/hr DAILY@09 IV 02/11/25 09:00 02/11/25 08:49 100 MLS/HR laboratory and microbiology Laboratory Tests 02/11/25 04:57 Test 02/11/25 04:57 Range/Units Serum Glucose 118 H 74-106 mg/dL Microbiology Date/Time Source Procedure Growth Status 02/10/25 09:00 Voided Urine Urine Culture - Preliminary Resulted Problem List/Assessment/Plan Problem List/Assessment/Plan AFEBRILE VSS ABD SOFT WOUNDS HEALING NO COMPLICATIONS ADVANCE DIET CLEARED FOR DISCHARGE Plan discussed with: Patient My Orders My Orders Orders - JESUS DOBBINS MD Procedure Category Date Status Time Clear Liq Diet DIET 02/10/25 Transmitted Dinner Sequential PINA 02/10/25 In Process Compression Device 15:24 Incentive Spirometry ORDERS 02/10/25 Transmitted Q 1hr 15:24 Abdominal Binder PINA 02/10/25 In Process 15:24 Full Liq Diet DIET 02/11/25 Transmitted Breakfast JESUS DOBBINS MD Feb 11, 2025 14:15
== END 2025-02-11 15:00 | disposition home or self-care (01) | DRG 233 ==
LOC: ER 08:22 → OVERFLOW 11:44 → WEST WING 20:11
PROVIDERS: ADMIT Internal Medicine Geriatric Medicine; ATTEND Internal Medicine Geriatric Medicine
PROC: 0DTJ4ZZ Resection of Appendix, Percutaneous Endoscopic Approach (ICD-10-PCS; principal; 2025-02-10 13:46)
DX: K35.33 Acute appendicitis with perforation, localized peritonitis, and gangrene, with abscess (principal); R65.10 Systemic inflammatory response syndrome (SIRS) of non-infectious origin without acute organ dysfunction; F17.200 Nicotine dependence, unspecified, uncomplicated; K29.70 Gastritis, unspecified, without bleeding; N39.0 Urinary tract infection, site not specified; Z79.899 Other long term (current) drug therapy; Z82.49 Family history of ischemic heart disease and other diseases of the circulatory system
CPT/HCPCS: 36415; 74176; 80053; 81001; 81025; 83605; 85025; 85610; 85730; 86850; 86900; 86901; 87086; 96365; 99291; G0378; J1100; J1885; J2003; J2405; J2704; J3490

== ENCOUNTER 2025-09-26 17:07 | Emergency (ER) | payer MEDICAID ==
[~2025-09-26] VITALS: Ht 167.6 cm; Wt 91.7 kg
[~2025-09-26 17:07] MED LIST: ACE3T PO; AUG875T PO; PANT40TA2 PO
[2025-09-26 18:56] LABS: Hematocrit 41.5 % (36.0-46.0); Hemoglobin 13.8 g/dL (12.2-16.2); Mean Corpuscular Hemoglobin 31.4 pg (28.0-32.0); Mean Corpuscular Volume 94.4 fL (80.0-100.0); Nucleated Red Blood Cells % 0.0 %
--- NOTE | 2025-09-26 19:01 | DVH ---
Exam: CT CT AB PEL WO CON-NO ORAL OR IV History: FB Comparison Study: CT CT AB PEL WO CON-NO ORAL OR IV on DOS: 02/10/25, CT ABD PELVIS WO CONTRAST on DOS: 09/22/21 TECHNIQUE: Multidetector CT of the abdomen AND PELVIS without IV contrast. Axial, coronal and sagittal multiplanar reformats were obtained from the axial data set by the technologist. Radiation Dose Information: CT Dose: CTDI volume is 10.58 mGy. Dose-length product is 570.79 mGy*cm FINDINGS: Lung bases are clear. Partially visualized heart is unremarkable. Mild hepatosplenomegaly otherwise, liver, spleen, gallbladder, pancreas and adrenal glands unremarkable. Kidneys, ureters and urinary bladder unremarkable. Intrauterine device is noted in place. 3.2 cm right ovarian cyst with 2.2 cm left ovarian cyst/ dominant follicle. Stomach is unremarkable. Small bowel loops unremarkable. Status post appendectomy. Moderate to large amount of fecal material within the colon. No evidence of intraperitoneal free air or free fluid. No evidence of aortic aneurysm. No significant lymphadenopathy. The soft tissues unremarkable. Tiny fat containing umbilical hernia. No evidence of acute osseous abnormalities. IMPRESSION: No evidence of acute abdominopelvic abnormalities. No obvious foreign bodies are visualized. Intrauterine device is noted in place. Moderate to large amount of fecal material within the colon. 3.2 cm right ovarian cyst with a 2.2 cm left ovarian cyst/ dominant follicle.
--- NOTE | 2025-09-26 19:05 | ED.PDOC ---
GI ASSESSMENT HPI Comments HPI: 19-year-old female who came to ER for abdominal pain. Patient states she has been having diffuse abdominal pain the past 3 weeks, after she accidentally swallowed her tongue ring. Few hours ago, she started having sharp right lower quadrant abdominal pain. Denies any possibility of . She had a status post appendectomy Past Medical History: Denies Past Surgical History: Appendectomy Social History: Denies tian: RLQ pain. HPI: Poor Historian. REVIEW OF SYSTEMS: CONSTITUTIONAL: Denies acute: fever, diaphoresis, chills, generalized weakness. HEAD: Denies acute: headache, photophobia Eyes: Denies acute: Double vision, vision loss, eye pain, eye discharge. EARS: Denies acute: tinnitus, hearing loss, ear discharge, ear pain, THROAT: Denies acute: sore throat, swelling, difficulty swallowing , pain with swallowing, change in voice. NECK: Denies acute: neck pain, neck swelling, stiff neck. HEART: Denies acute : chest pain, palpitations, LUNGS: Denies acute: SOB, wheezing, cough, hemoptysis ABDOMEN: Denies acute: Nausea, Vomiting, diarrhea, melena , hematemesis, hematochezia SKIN: Denies acute: rash, redness, lesions, itchiness. EXTREMITIES: Denies acute: calf pain, numbness, tingling, weakness, denies pain in extremity. Denies acute: Low back pain. Neuro: Denies acute: focal neurological deficit, motor or sensory focal neurological deficit, tremors, seizure like activity, confusion, dizziness, change in mental status, loss of bowel or bladder function, cauda equina like symptoms. : Denies acute: dysuria, hematuria, flank pain, increase in urinary frequency. PSYCH: Denies acute: hallucination, suicidal ideation, homicidal ideation. FEMALE: Denies acute: abnormal vaginal bleeding, foul odor, unusual discharge. PHYSICAL EXAM: General: ------no--acute distress, awake and alert. Head: normocephalic, atraumatic. No raccoon's eyes, no valenzuela sign. Neck: supple, trachea is midline, no swelling. Throat: Normal phonation. Eyes:, no erythema, no purulent discharge, no proptosis, no icterus. Heart: regular rate, regular rhythm, no significant murmur appreciated. Lungs: no apparent respiratory distress, Able to speak in full sentences. No wheezing, no rhonchi, no crackles. No stridors Clear to auscultation bilaterally. Abdomen: Focal one point right lower quadrant tender to palpation, non distended, soft, no guarding, no rebound, + bowel sounds. No inguinal or suprapubic or pelvic tenderness to palpation. Neuro: Awake, Alert, oriented to name, self, situation, follows commands GCS=15. Speech is normal. Skin: no petechia, no purpura, no cyanosis, non-pale, not jaundice. Lower extremities: --no - Pitting edema no deformity, no focal swelling, no calf TTP. Makes eye contact. moves all four extremities. Face: no apparent facial droop. Ambulating in the ED independently. No nuchal rigidity, Kernig's sign, Brudzinski's sign, no meningeal signs. ED COURSE: DISCLAIMER: This medical document was created using an electronic medical record system with voice recognition software and computerized dictation system. Although this document has been carefully reviewed, there might still be some phonetic and typographical errors. Occasional wrong-word or "sound-alike" substitutions may have occurred due to the inherent limitations of voice recognition software. These areas are purely typographical due to imperfections of the software progr ams and do not reflect any compromise in the patient's medical care. Please read the chart carefully and recognize, using context, where these substitutions have occurred. Chief Complaint: Abdominal Pain Time Seen by MD: 19:05 Primary Care Provider: DONN Reviewed Notes: Nurses Notes, Allergies Allergies: Coded Allergies: NO KNOWN ALLERGIES (Unverified , 04/29/11) Home Meds Active Scripts Amoxicillin & Pot Clavulanate (AUGMENTIN TABLET) 875 Mg Tb, 875 MG PO BID for 7 Days, #14 TAB Prov:ALEX FITZPATRICK MD 02/11/25 Acetaminophen W/ Codeine (Tylenol W/Cod #3) 1 Tab Tb, 1 TAB PO Q6HP PRN, #15 TAB Prov:ALEX FITZPATRICK MD 02/11/25 Pantoprazole Sodium Sesquihydr (Protonix) 40 Mg Tab, 40 MG PO DAILY for 5 Days, #5 TAB Prov:ESTEFANI BELTRAN MD 02/10/25 Information Source: Patient Mode of Arrival: Ambulatory Past Medical History PAST MEDICAL HISTORY: Denies Surgical History: Appendectomy Family History Family History: Reviewed,noncontributory to illness, No family hx of HTN Social History Smoker: Other Alcohol: Occasionally Drugs: Marijuana Lives In: Home Was a procedure done? Was a procedure done?: No GI differential Dx Differential Diagnosis: Constipation, Diverticular disease, Gastritis/PUD, Gastroenteritis, Ovarian cyst/torsion, Pancreatitis, Other (DDX include Diverticulitis, colitis, gastroenteritis, acute abdomen, SBO, enteritis, constipation, volvulus, appendicitis, Gallbladder disease, choledocolithiasis, ascending cholangitis, pancreatitis, intraAbdominal mass/neoplasm, hepatitis, UTI, pylonephritis, kidney stone, aneurysm, dissection, Inflammatory bowel disease, gastroparesis, ischemic bowel,,,,,,Food poisoning, bacterial/parasitic/viral etiology, trauma, diabetes DKA,ovarian torsion, ovarian cyst/mass, tubo-ovarian abscess, , ectopic , PID, STD.) X-Ray, Labs, Meds, VS Vital Signs Date Time Temp Pulse Resp B/P (MAP) Pulse Ox O2 Delivery O2 Flow Rate FiO2 09/26/25 22:25 99.1 83 16 120/79 (93) 99 99.1 09/26/25 22:25 83 16 99 Room Air* 0 21 09/26/25 19:44 98.1 80 16 133/94 (107) 96 98.1 09/26/25 17:12 98.2 84 18 141/97 100 98.2 Lab Test 09/26/25 21:45 09/26/25 18:38 Range/Units Urine Color Light-yellow Yellow Urine Clarity Clear Clear Urine pH 6.5 5.0-9.0 Urine Specific [place] 1.023 1.001-1.035 Urine Protein Negative Negative Urine Ketones Negative Negative Urine Blood Negative Negative /uL Urine Nitrite Negative Negative Urine Bilirubin Negative Negative Urine Urobilinogen Normal Negative mg/dL Urine Leukocyte Esterase Negative Negative /uL Urine RBC 4 0 - 4 /hpf Urine Microscopic WBC 3 0-5 /HPF Urine Squamous Epithelial Cells Few <5 /hpf Urine Bacteria None seen None Seen /hpf Urine Glucose Normal Normal mg/dL White Blood Count 8.1 4.4-10.8 10^3/uL Red Blood Count 4.39 4.0-5.20 10^6/uL Hemoglobin 13.8 12.2-16.2 g/dL Hematocrit 41.5 36.0-46.0 % Mean Corpuscular Volume 94.4 80.0-100.0 fL Mean Corpuscular Hemoglobin 31.4 28.0-32.0 pg Mean Corpuscular Hemoglobin Concent 33.2 32.0-36.0 g/dL Red Cell Distribution Width 13.2 11.8-14.3 % Platelet Count 248 140-450 10^3/uL Mean Platelet Volume 8.2 6.9-10.8 fL Neutrophils (%) (Auto) 62.2 37.0-80.0 % Lymphocytes (%) (Auto) 28.6 10.0-50.0 % Monocytes (%) (Auto) 6.5 0.0-12.0 % Eosinophils (%) (Auto) 1.8 0.0-7.0 % Basophils (%) (Auto) 0.9 0.0-2.0 % Neutrophils # (Auto) 5.0 1.6-8.6 10 ^3/uL Lymphocytes # (Auto) 2.3 0.4-5.4 10 ^3/uL Monocytes # (Auto) 0.5 0-1.3 10 ^3/uL Eosinophils # (Auto) 0.1 0-0.8 10 ^3/uL Basophils # (Auto) 0.1 0-0.2 10 ^3/uL Nucleated Red Blood Cells 0.0 % Sodium Level 142 136-145 mmol/L Potassium Level 4.2 3.5-5.1 mmol/L Chloride Level 105 98-107 mmol/L Carbon Dioxide Level 27 20-31 mmol/L Anion Gap 10 5-15 Blood Urea Nitrogen 12 9-23 mg/dL Creatinine 0.92 0.550-1.02 mg/dL Glomerular Filtration Rate Calc 91 >90 mL/min BUN/Creatinine Ratio 13.0 10.0-20.0 Serum Glucose 89 74-106 mg/dL Lactic Acid Level 0.6 0.4-2.0 mmol/L Calcium Level 9.5 8.7-10.4 mg/dL Total Bilirubin 0.4 0.2-1.0 mg/dL Aspartate Amino Transferase (AST) 16 13-40 U/L Alanine Aminotransferase (ALT) 15 7-40 U/L Alkaline Phosphatase 53 46-116 U/L Total Protein 7.2 5.7-8.2 g/dL Albumin 4.6 3.2-4.8 g/dL Lipase 42 12-53 U/L [facility] [id number] [place] [address] Ph: [phone] DIAGNOSTIC IMAGING Diagnostic Imaging Report : [id number] Signed PATIENT: JERAMY TIAN ACCT: [id number] UNIT: [id number] : 2005 LOC: ER ROOM / BED: / AGE / SEX: 19 / F ADM STATUS: REG ER SERVICE 21 ORDERING PHYSICIAN: IRLANDA NEW DO PROCEDURE(s): ABPL - CT AB PEL WO CON-NO ORAL OR IV REASON: FB ORDER NUMBER(s): [id number], ACCESSION NUMBER(s): [id number] Exam: CT CT AB PEL WO CON-NO ORAL OR IV History: FB Comparison Study: CT CT AB PEL WO CON-NO ORAL OR IV on DOS: 02/10/25, CT ABD PELVIS WO CONTRAST on DOS: 09/22/21 TECHNIQUE: Multidetector CT of the abdomen AND PELVIS without IV contrast. Axial, coronal and sagittal multiplanar reformats were obtained from the axial data set by the technologist. Radiation Dose Information: CT Dose: CTDI volume is 10.58 mGy. Dose-length product is 570.79 mGy*cm FINDINGS: Lung bases are clear. Partially visualized heart is unremarkable. Mild hepatosplenomegaly otherwise, liver, spleen, gallbladder, pancreas and adrenal glands unremarkable. Kidneys, ureters and urinary bladder unremarkable. Intrauterine device is noted in place. 3.2 cm right ovarian cyst with 2.2 cm left ovarian cyst/ dominant follicle. Stomach is unremarkable. Small bowel loops unremarkable. Status post appendectomy. Moderate to large amount of fecal material within the colon. No evidence of intraperitoneal free air or free fluid. No evidence of aortic aneurysm. No significant lymphadenopathy. The soft tissues unremarkable. Tiny fat containing umbilical hernia. No evidence of acute osseous abnormalities. IMPRESSION: No evidence of acute abdominopelvic abnormalities. No obvious foreign bodies are visualized. Intrauterine device is noted in place. Moderate to large amount of fecal material within the colon. 3.2 cm right ovarian cyst with a 2.2 cm left ovarian cyst/ dominant follicle. ATED BY: ANA LOGAN DO DICTATED DATE/TIME: 09/26/251857 SIGNED BY: ANA LOGAN DO SIGNED DATE/TIME: 09/26/251857 CC: [place] [address] Ph: [phone] DIAGNOSTIC IMAGING Diagnostic Imaging Report : [id number] Signed PATIENT: JERAMY TIANCCT: [id number] UNIT: [id number] : 2005 LOC: ER ROOM / BED: / AGE / SEX: 19 / F ADM STATUS: REG ER SERVICE 05 ORDERING PHYSICIAN: IRLANDA NEW DO PROCEDURE(s): PELUS - PELVIC REASON: RLQ PAIN ORDER NUMBER(s): [id number], ACCESSION NUMBER(s): [id number] Procedure: US PELVIC Study Date and Requested Time: 09/26/2025 09:02 PM Study Description: US PELVIC History: RLQ PAIN Comparison: CT abdomen and pelvis 09/26/2025 Technique: Multiple transabdominal high resolution barrett-scale images obtained of the uterus and adnexa with color Doppler for evaluation of adnexal blood flow and vascularity as indicated. Findings: Uterus measures 8.4 x 4.5 x 5.3 cm, with homogeneous echotexture. Endometrium within normal limits, measuring 0.7 cm in thickness with smooth contour. Cervix within normal limits. Right ovary measures 3.8 x 2.5 x 3.4 cm with a 2.6 cm cyst. Normal right ovarian color doppler flow. The left ovary is not visualized. No evidence of free fluid in the cul-de-sac. Impression: 2.6 cm right ovarian cyst. The left ovary is not visualized. The uterus is unremarkable. ATED BY: ANA LOGAN DO DICTATED DATE/TIME: 09/26/252130 SIGNED BY: ANA LOGAN DO SIGNED DATE/TIME: 09/26/252130 CC: Time of 1ST Reevaluation: 19:02 Reevaluation 1ST: Unchanged Patient Education/Counseling: Diagnosis, Treatment Family Education/Counseling: No Family Present Comments MDM: patient presented with the above HPI.------workup was initiated. patient was found with the above mentioned diagnosis. the following medications were ordered: please refer to order lists of meds and tests obtained by myself Dr. New. Patient ED course and VS have been stabilized. Patient has been reassessed in the ED and remained in a stable condition. Pertinent incidental findings were discussed with the patient and/or family. Patient/family voices understanding and is agreeable with plan. Patient has been observed in the ED adequate length of time to insure improvement/stability. Escalation of care considered: Consideration of escalation to observation or admission CT scan does not show any foreign bodies. Patient was DISCHARGED home in a stable condition. All the reports of any imaging studies that were ordered by myself were reviewed by myself. SEPSIS Sepsis Screen Date sepsis recognized/suspect: Sep 26, 2025 Time Sepsis recognized/suspect: 1713 Recent Procedure: No On Antibiotic Therapy: No Respiratory Rate >20: No Heart Rate >90: No Temp<36 C (96.8 F) or >38.3 C: No SBP <90 or MAP <65 mmHG: No New Acute Mental Status Change: No Is the patient on CPAP, BIPAP,: No Physician Orders Pond Worker (09/26/25 ) Ct Ab Pel Wo Con-No Oral Or Iv (09/26/25 18:22) Pelvic (09/26/25 19:06) Vital Signs Date Time Temp Pulse Resp B/P (MAP) Pulse Ox O2 Delivery O2 Flow Rate FiO2 09/26/25 22:25 99.1 83 16 120/79 (93) 99 99.1 09/26/25 22:25 83 16 99 Room Air* 0 21 09/26/25 19:44 98.1 80 16 133/94 (107) 96 98.1 09/26/25 17:12 98.2 84 18 141/97 100 98.2 Laboratory Tests Test 09/26/25 18:38 Lactic Acid Level 0.6 mmol/L (0.4-2.0) White Blood Count 8.1 10^3/uL (4.4-10.8) Departure 1 Departure Time of Disposition: 21:44 Impression: Primary Impression: Right ovarian cyst Additional Impression: Constipation Disposition: 01 HOME / SELF CARE / HOMELESS Condition: Stable Additional Instructions: Additional instructions: Please read all instructions provided in this packet carefully. You MUST follow-up with your primary care/family doctor in 1 to 2 days. If you are unable to see your primary care/family doctor, please return to our emergency room for re-assessment and re-evaluation in 1 to 2 days. Return to the emergency room here in our facility or to the nearest ER [facility] if your symptoms change or worsen. CONSULTATIONS: you MUST Follow-up for consultation as soon as possible with: Dr. JUAN A Luna doctor and GI doctor in 1-2 days. Please call for appointment. You MUST call the consultants office yourself to make an appointment. You may need to arrange that through your insurance and/or your primary/family doctor. If you are unable to see the partner management consultant in 1 to 2 days, you must return to our emergency room (or any other ER of your choice) for re-assessment and re- evaluation. Adequate fluid hydration. Although you have been discharged from the Emergency Department, this does not mean that you have a "clean bill of health". No definitive diagnosis for your symptoms has been made today. It is possible that you are in the process of developing a serious illness. This is why you must return to the ED without fail if any new or worsening symptoms develop. Pelvic rest. Below is a copy of your radiological report for follow up: [place] [address] Ph: [phone] DIAGNOSTIC IMAGING Diagnostic Imaging Report : [id number] Signed PATIENT: JERAMY TIAN ACCT: [id number] UNIT: [id number] : 2005 LOC: ER ROOM / BED: / AGE / SEX: 19 / F ADM STATUS: REG ER SERVICE 1822 ORDERING PHYSICIAN: IRLANDA NEW DO PROCEDURE(s): ABPL - CT AB PEL WO CON-NO ORAL OR IV REASON: FB ORDER NUMBER(s): [id number], ACCESSION NUMBER(s): [id number] Exam: CT CT AB PEL WO CON-NO ORAL OR IV History: FB Comparison Study: CT CT AB PEL WO CON-NO ORAL OR IV on DOS: 02/10/25, CT ABD PELVIS WO CONTRAST on DOS: 09/22/21 TECHNIQUE: Multidetector CT of the abdomen AND PELVIS without IV contrast. Axial, coronal and sagittal multiplanar reformats were obtained from the axial data set by the technologist. Radiation Dose Information: CT Dose: CTDI volume is 10.58 mGy. Dose-length product is 570.79 mGy*cm FINDINGS: Lung bases are clear. Partially visualized heart is unremarkable. Mild hepatosplenomegaly otherwise, liver, spleen, gallbladder, pancreas and adre nal glands unremarkable. Kidneys, ureters and urinary bladder unremarkable. Intrauterine device is noted in place. 3.2 cm right ovarian cyst with 2.2 cm left ovarian cyst/ dominant follicle. Stomach is unremarkable. Small bowel loops unremarkable. Status post appendectomy. Moderate to large amount of fecal material within the colon. No evidence of intraperitoneal free air or free fluid. No evidence of aortic aneurysm. No significant lymphadenopathy. The soft tissues unremarkable. Tiny fat containing umbilical hernia. No evidence of acute osseous abnormalities. IMPRESSION: No evidence of acute abdominopelvic abnormalities. No obvious foreign bodies are visualized. Intrauterine device is noted in place. Moderate to large amount of fecal material within the colon. 3.2 cm right ovarian cyst with a 2.2 cm left ovarian cyst/ dominant follicle. ATED BY: ANA LOGAN DO DICTATED DATE/TIME: 09/26/251857 SIGNED BY: ANA LOGAN DO SIGNED DATE/TIME: 09/26/251857 CC: [place] [address] Ph: [phone] DIAGNOSTIC IMAGING Diagnostic Imaging Report : [id number] Signed PATIENT: JERAMY TIAN ACCT: [id number] UNIT: [id number] : 2005 LOC: ER ROOM / BED: / AGE / SEX: 19 / F ADM STATUS: REG ER SERVICE 05 ORDERING PHYSICIAN: IRLANDA NEW DO PROCEDURE(s): PELUS - PELVIC REASON: RLQ PAIN ORDER NUMBER(s): [id number], ACCESSION NUMBER(s): [id number] Procedure: US PELVIC Study Date and Requested Time: 09/26/2025 09:02 PM Study Description: US PELVIC History: RLQ PAIN Comparison: CT abdomen and pelvis 09/26/2025 Technique: Multiple transabdominal high resolution barrett-scale images obtained of the uterus and adnexa with color Doppler for evaluation of adnexal blood flow and vascularity as indicated. Findings: Uterus measures 8.4 x 4.5 x 5.3 cm, with homogeneous echotexture. Endometrium within normal limits, measuring 0.7 cm in thickness with smooth contour. Cervix within normal limits. Right ovary measures 3.8 x 2.5 x 3.4 cm with a 2.6 cm cyst. Normal right ovarian color doppler flow. The left ovary is not visualized. No evidence of free fluid in the cul-de-sac. Impression: 2.6 cm right ovarian cyst. The left ovary is not visualized. The uterus is unremarkable. ATED BY: ANA LOGAN DO DICTATED DATE/TIME: 09/26/252130 SIGNED BY: ANA LOGAN DO SIGNED DATE/TIME: 09/26/252130 CC: Discharged With: Self Critical Care Note Critical Care Time?: No I personally scribed for IRLANDA NEW DO ([email or web address]) on 09/26/25 at 19:05. Elect ronically submitted by Codey Mendoza ([facility]). I personally scribed for IRLANDA NEW DO ([email or web address]) on 09/26/25 at 19:06. E lectronically submitted by Codey Mendoza ([facility]). I personally scribed for IRLANDA NEW DO ([email or web address]) on 09/26/25 at 21:46. Electronically submitted by Codey Mendoza ([facility]). IRLANDA NEW DO Sep 26, 2025 19:05
[2025-09-26 19:11] LABS: Alanine Aminotransferase 15 U/L (7-40); Albumin 4.6 g/dL (3.2-4.8); Alkaline Phosphatase 53 U/L (46-116); Anion Gap 10 (5-15); BUN/Creatinine Ratio 13.0 (10.0-20.0); Blood Urea Nitrogen 12 mg/dL (9-23); Calcium 9.5 mg/dL (8.7-10.4); Carbon Dioxide 27 mmol/L (20-31); Chloride 105 mmol/L (98-107); Glucose 89 mg/dL (74-106); Lipase 42 U/L (12-53); Potassium 4.2 mmol/L (3.5-5.1); Sodium 142 mmol/L (136-145); Total Protein 7.2 g/dL (5.7-8.2)
[2025-09-26 19:12] LABS: Bilirubin, Total 0.4 mg/dL (0.2-1.0)
--- NOTE | 2025-09-26 21:34 | DVH ---
Procedure: US PELVIC Study Date and Requested Time: 09/26/2025 09:02 PM Study Description: US PELVIC History: RLQ PAIN Comparison: CT abdomen and pelvis 09/26/2025 Technique: Multiple transabdominal high resolution barrett-scale images obtained of the uterus and adnexa with color Doppler for evaluation of adnexal blood flow and vascularity as indicated. Findings: Uterus measures 8.4 x 4.5 x 5.3 cm, with homogeneous echotexture. Endometrium within normal limits, measuring 0.7 cm in thickness with smooth contour. Cervix within normal limits. Right ovary measures 3.8 x 2.5 x 3.4 cm with a 2.6 cm cyst. Normal right ovarian color doppler flow. The left ovary is not visualized. No evidence of free fluid in the cul-de-sac. Impression: 2.6 cm right ovarian cyst. The left ovary is not visualized. The uterus is unremarkable.
[2025-09-26 22:10] LABS: Urine Protein, UAD Negative (Negative)
[2025-09-26 22:25] VITALS: BP 120/79; PULSE 83; RESP 16; TEMP 99.1; O2SAT 99
== END 2025-09-26 22:30 | disposition home or self-care (01) ==
LOC: ER 17:07
DX: N83.201 Unspecified ovarian cyst, right side (principal); K59.00 Constipation, unspecified; F10.90 Alcohol use, unspecified, uncomplicated; F12.90 Cannabis use, unspecified, uncomplicated; F17.200 Nicotine dependence, unspecified, uncomplicated; Z79.899 Other long term (current) drug therapy; Z90.49 Acquired absence of other specified parts of digestive tract
CPT/HCPCS: 36415; 74176; 76856; 80053; 81001; 83605; 83690; 85025